=== PATIENT | female | born 1950 | race Caucasian/White ===

== ENCOUNTER 2017-06-26 15:57 | Inpatient (IN) | payer OTHER ==
[~2017-06-26] VITALS: Ht 162.6 cm; Wt 76.8 kg
[~2017-06-26 15:57] MED LIST: ACCUPRIL20 MG PO; AMLODIPINE BESY10 MG PO; ASPIRIN E.C.81 M1 PO; BUMEX1 MG PO; Bumex PO; CLOPIDOGREL75 MG PO; COREG25 M1 PO; COREG6.25 M1 PO; Coreg PO; DELTASONE20 M1 PO; IRON325 MG PO; K-DUR20 MEQ PO; LISINOPRIL20 MG PO; LISINOPRIL5 MG PO; LOMOTIL TABLET1 EACH PO; NOVOLIN,HU100 UNITS/ SC; OXYCODONE HCL5 MG PO; PLAVIX75 MG PO; PREDNISONE10 MG PO; PROAIR HFA8.5 GM IH; SIMVASTATIN80 MG PO; TIMOPTIC-0100 DROP/1 BOTH EYES; TRAMADOL HCL50 MG PO; XALATAN2.5 ML BOTH EYES; Zocor PO
[2017-06-26 16:57] LABS: HEMATOCRIT 27.8 % (36.0-46.0); MCH 31.1 PG (29.0-34.0); MCHC 32.7 G/DL (30.0-36.0); MCV 94.9 FL (83-99); PLATELET COUNT 165 K/uL (156-360); RBC DIS.WIDTH-CV 14.7 % (11.8-14.6); RBC DIS.WIDTH-SD 50.9 % (39-53); RED BLOOD COUNT 2.93 M/uL (3.80-5.20); WHITE BLOOD COUNT 9.1 K/uL (4.1-10.2)
[2017-06-26 17:05] LABS: CHLORIDE 117 mEq/L (99-109); POTASSIUM 5.6 mEq/L (3.7-5.4); SODIUM 142 mEq/L (136-147)
[2017-06-26 17:07] LABS: GLUCOSE 189 mg/dL (70-99)
[2017-06-26 17:08] LABS: ANION GAP 15 MEQ/L (2-14)
[2017-06-26 17:09] LABS: TOTAL BILIRUBIN 0.3 mg/dL (0.0-1.0)
[2017-06-26 17:11] LABS: ALKALINE PHOSPHATASE 78 IU/L (3-129); GFR ESTIMATE (CALCULATED) 10 mL/min/
[2017-06-26 17:16] LABS: TROP-I INTERPRETATION NEGATIVE; TROPONIN-I 0.08 ng/mL (0.0-0.30); UREA NITROGEN (BUN) 172 mg/dL (9-23)
[2017-06-26] MEDS ORDERED: PLAVIX75 MG PO (18:08)
[2017-06-26] MEDS ORDERED: NOVOLIN,HU100 UNITS/ SC (18:10)
[2017-06-26] MEDS ORDERED: METOPROLOL PO (18:11)
[2017-06-26] MEDS ORDERED: ALLOPURINOL300 MG PO (18:12)
[2017-06-26 19:18] LABS: ADD MIUA? YES; BILIRUBIN NEGATIVE; BLOOD SMALL; COLOR YELLOW ((YELLOW)); GLUCOSE (STRIP) NEGATIVE; KETONES NEGATIVE; LEUKOCYTES LARGE; NITRITE NEGATIVE; PROTEIN (STRIP) 30; SPECIFIC GRAVITY 1.012 (1.000-1.030); UROBILINOGEN 0.2 MG/DL (0.2-1.0)
[2017-06-26 19:34] LABS: BACTERIA 4+ /HPF; CASTS NONE SEEN /LPF; CRYSTALS NONE SEEN; EPITHELIAL CELLS NONE SEEN /HPF; MUCUS NONE SEEN /LPF; RED BLOOD CELLS 0-5 /HPF (0-5); UCUL ADDED? YES; WHITE BLOOD CELLS TNTC /HPF (0-5)
[2017-06-26 23:13] LABS: INTACT PARATHYROID HORMONE 164 pg/mL (10-69)
[2017-06-26 23:17] VITALS: BP 108/50
[2017-06-26 23:33] LABS: POINT-OF-CARE METER ID UU13113698
[2017-06-27 03:13] VITALS: BP 110/53
[2017-06-27 05:55] LABS: HEMATOCRIT 25.2 % (36.0-46.0); MCH 31.6 PG (29.0-34.0); MCHC 32.9 G/DL (30.0-36.0); MCV 95.8 FL (83-99); MEAN PLAT.VOLUME 11.3 uM^3 (9.5-12.4); PLATELET COUNT 155 K/uL (156-360); RBC DIS.WIDTH-CV 14.9 % (11.8-14.6); RBC DIS.WIDTH-SD 51.8 % (39-53); RED BLOOD COUNT 2.63 M/uL (3.80-5.20); WHITE BLOOD COUNT 7.9 K/uL (4.1-10.2)
[2017-06-27 06:55] LABS: ANION GAP 14 MEQ/L (2-14); CHLORIDE 117 MEQ/L (99-109); GLUCOSE 163 mg/dL (70-99); SAMPLE HEMOLYSIS CHECK 0; SAMPLE ICTERIC CHECK 0; SAMPLE LIPEMIA CHECK 0; SODIUM 142 MEQ/L (136-147)
[2017-06-27 07:05] LABS: UREA NITROGEN (BUN) 157 mg/dL (9-23)
[2017-06-27 07:06] LABS: GFR ESTIMATE (CALCULATED) 14 mL/min/
[2017-06-27 07:17] VITALS: BP 113/56
[2017-06-27 08:01] LABS: POINT-OF-CARE METER ID UU13113781
[2017-06-27 11:35] VITALS: BP 100/52
[2017-06-27 11:45] LABS: POINT-OF-CARE METER ID UU13113781
[2017-06-27 15:12] VITALS: BP 117/55
[2017-06-27 17:15] LABS: POINT-OF-CARE METER ID UU13113781
[2017-06-27 19:00] VITALS: BP 107/53
[2017-06-27 22:50] VITALS: BP 97/52
[2017-06-28 05:15] VITALS: BP 119/55
[2017-06-28 07:26] LABS: ANION GAP 14 MEQ/L (2-14); CHLORIDE 121 MEQ/L (99-109); IRON 50 MCG/DL (35-150); POTASSIUM 4.3 MEQ/L (3.7-5.4); SAMPLE HEMOLYSIS CHECK 0; SAMPLE ICTERIC CHECK 0; SAMPLE LIPEMIA CHECK 0; SODIUM 147 MEQ/L (136-147)
[2017-06-28 07:36] LABS: GLUCOSE 87 mg/dL (70-99); UREA NITROGEN (BUN) 104 mg/dL (9-23)
[2017-06-28 07:37] LABS: GFR ESTIMATE (CALCULATED) 24 mL/min/
[2017-06-28 08:07] VITALS: BP 116/56
[2017-06-28 08:44] LABS: FERRITIN 478 NG/ML (10-291)
[2017-06-28 11:42] VITALS: BP 106/51
[2017-06-28 12:06] LABS: POINT-OF-CARE METER ID UU13113781
[2017-06-28 12:13] LABS: POINT-OF-CARE METER ID UU13113698
[2017-06-28 13:28] LABS: POINT-OF-CARE METER ID UU13113781
[2017-06-28 16:09] VITALS: BP 100/72
[2017-06-28 19:11] VITALS: BP 90/49
[2017-06-28 23:43] VITALS: BP 112/54
[2017-06-29] MEDS ORDERED: SILVADENE20 GM TP (03:44)
[2017-06-29 04:00] VITALS: BP 105/51
[2017-06-29 07:13] VITALS: BP 107/51
[2017-06-29 07:30] LABS: EOSINOPHIL (%) 1.3 % (0-5); EOSINOPHIL COUNT 0.1 K/uL (0-0.3); HEMATOCRIT 25.1 % (36.0-46.0); IMMATURE GRANULOCYTE (%) 0.6 % (0.0-0.7); IMMATURE GRANULOCYTE COUNT 0.1 K/uL; INSTRUMENT ABS NEUTROPHIL CT 6.9 K/uL; LYMPHOCYTE COUNT 0.7 K/uL (1.0-2.8); MCH 31.3 PG (29.0-34.0); MCHC 32.7 G/DL (30.0-36.0); MCV 95.8 FL (83-99); MEAN PLAT.VOLUME 10.5 uM^3 (9.5-12.4); MONOCYTE (%) 9.8 % (3-12); MONOCYTE COUNT 0.9 K/uL (0-0.8); NEUTROPHIL (%) 79.9 % (45-76); NEUTROPHIL COUNT 6.9 K/uL (1.8-6.4); PLATELET COUNT 151 K/uL (156-360); RBC DIS.WIDTH-CV 14.9 % (11.8-14.6); RBC DIS.WIDTH-SD 51.6 % (39-53); RED BLOOD COUNT 2.62 M/uL (3.80-5.20); WHITE BLOOD COUNT 8.7 K/uL (4.1-10.2)
[2017-06-29 07:53] LABS: POINT-OF-CARE METER ID UU13113781
[2017-06-29 09:10] LABS: ANION GAP 11 MEQ/L (2-14); CHLORIDE 119 MEQ/L (99-109); GFR ESTIMATE (CALCULATED) 28 mL/min/; GLUCOSE 106 mg/dL (70-99); MAGNESIUM 1.5 mg/dl (1.3-2.7); POTASSIUM 4.2 MEQ/L (3.7-5.4); SAMPLE HEMOLYSIS CHECK 0; SAMPLE ICTERIC CHECK 0; SAMPLE LIPEMIA CHECK 0; SODIUM 145 MEQ/L (136-147); UREA NITROGEN (BUN) 79 mg/dL (9-23)
[2017-06-29 12:08] LABS: POINT-OF-CARE METER ID UU13113781
[2017-06-29 12:09] VITALS: BP 110/69
[2017-06-29 16:19] LABS: UR CREATININE CONCENTRATION 91.1 MG/DL
[2017-06-29 16:30] LABS: POINT-OF-CARE METER ID UU13113781
[2017-06-29 16:42] VITALS: BP 99/49
[2017-06-29 18:46] VITALS: BP 109/53
[2017-06-30 00:14] VITALS: BP 102/50
[2017-06-30 03:50] VITALS: BP 112/52
[2017-06-30 06:19] LABS: ANION GAP 11 MEQ/L (2-14); CHLORIDE 114 MEQ/L (99-109); GFR ESTIMATE (CALCULATED) 30 mL/min/; GLUCOSE 63 mg/dL (70-99); POTASSIUM 4.3 MEQ/L (3.7-5.4); SAMPLE HEMOLYSIS CHECK 0; SAMPLE ICTERIC CHECK 0; SAMPLE LIPEMIA CHECK 0; SODIUM 141 MEQ/L (136-147); UREA NITROGEN (BUN) 66 mg/dL (9-23)
[2017-06-30 08:16] VITALS: BP 117/58
[2017-06-30 11:48] LABS: POINT-OF-CARE METER ID UU13113803
[2017-06-30] MEDS ORDERED: BENTYL20 MG PO (12:13)
[2017-06-30] MEDS ORDERED: NABI650T PO (12:13)
[2017-06-30] MEDS ORDERED: CEFDINIR300 MG PO (12:13)
[2017-06-30] MEDS ORDERED: TRAMADOL HCL50 MG PO (12:13)
[2017-06-30] MEDS ORDERED: FLORASTOR250 MG PO (12:13)
[2017-06-30] MEDS ORDERED: ZOFRAN ODT4 MG PO (12:24)
== END 2017-06-30 15:23 | disposition home or self-care (01) | DRG 683 ==
LOC: EME 15:57 → EDOF 20:59 → 4EAST 20:59 → ENRESERV 21:01 → 4EAST 22:42
PROVIDERS: Hospitalist; Internal Medicine Nephrology; Nurse Practitioner Family
DX: N17.0 Acute kidney failure with tubular necrosis (principal); N39.0 Urinary tract infection, site not specified; B96.1 Klebsiella pneumoniae [K. pneumoniae] as the cause of diseases classified elsewhere; E86.0 Dehydration; E87.2 Acidosis; E87.5 Hyperkalemia; I95.9 Hypotension, unspecified; K52.9 Noninfective gastroenteritis and colitis, unspecified; I87.2 Venous insufficiency (chronic) (peripheral); I87.8 Other specified disorders of veins; L97.519 Non-pressure chronic ulcer of other part of right foot with unspecified severity; L97.929 Non-pressure chronic ulcer of unspecified part of left lower leg with unspecified severity; L97.919 Non-pressure chronic ulcer of unspecified part of right lower leg with unspecified severity; I89.0 Lymphedema, not elsewhere classified; I11.0 Hypertensive heart disease with heart failure; I50.9 Heart failure, unspecified; S80.811A Abrasion, right lower leg, initial encounter; X58.XXXA Exposure to other specified factors, initial encounter; R21 Rash and other nonspecific skin eruption; D63.8 Anemia in other chronic diseases classified elsewhere; E79.0 Hyperuricemia without signs of inflammatory arthritis and tophaceous disease; R01.1 Cardiac murmur, unspecified; E11.51 Type 2 diabetes mellitus with diabetic peripheral angiopathy without gangrene; E78.5 Hyperlipidemia, unspecified; I25.10 Atherosclerotic heart disease of native coronary artery without angina pectoris; I25.2 Old myocardial infarction; Z79.4 Long term (current) use of insulin; Z82.49 Family history of ischemic heart disease and other diseases of the circulatory system; Z95.1 Presence of aortocoronary bypass graft
CPT/HCPCS: 71020; 74176; 76770; 80053; 80069; 81003; 82570; 82607; 82728; 82746; 82948; 83540; 83605; 83735; 83930; 83935; 83970; 84156; 84300; 84466; 84484; 84550; 85025; 85027; 85651; 87040; 87077; 87086; 87186; 93005; 99202; 99281; 99285; J0696; J0881; J1815; J1885; J2405; J7030; J7050

== ENCOUNTER 2017-10-26 12:41 | Emergency (ER) | payer OTHER, MEDICARE ==
[~2017-10-26] VITALS: Ht 160 cm; Wt 94.7 kg
[~2017-10-26 12:41] MED LIST changes: +ALLOPURINOL300 MG PO; +AMIODARONE HCL200 MG PO; +BENTYL20 MG PO; +CEFDINIR300 MG PO; +FLORASTOR250 MG PO; +METOPROLOL PO; +MICRO-K10 ME2 PO; +NABI650T PO; +SILVADENE20 GM TP; +ZOFRAN ODT4 MG PO
[2017-10-26] MEDS ORDERED: BUMEX1 MG PO (14:57)
[2017-10-26] MEDS ORDERED: PERCOCET 5/31 TABLET PO (16:33)
[2017-10-26 17:12] VITALS: BP 108/49
== END 2017-10-26 17:26 | disposition home or self-care (01) ==
LOC: EME 12:41
DX: M25.551 Pain in right hip (principal); I50.9 Heart failure, unspecified; E11.9 Type 2 diabetes mellitus without complications; I25.2 Old myocardial infarction; Z79.4 Long term (current) use of insulin; Z95.1 Presence of aortocoronary bypass graft; Z79.82 Long term (current) use of aspirin; Z88.2 Allergy status to sulfonamides; Z91.041 Radiographic dye allergy status; Z88.8 Allergy status to other drugs, medicaments and biological substances
CPT/HCPCS: 73502; 99281; 99284

== ENCOUNTER → 2018-03-11 | Outpatient (CLI) | payer MEDICARE ==
[~2018-03-11] MED LIST changes: -METOPROLOL PO; +METOPROLOL SUCC25 MG PO; +PERCOCET 5/31 TABLET PO
== END | disposition home or self-care (01) ==
LOC: CDC 15:25
DX: Z01.810 Encounter for preprocedural cardiovascular examination (principal); I48.91 Unspecified atrial fibrillation; I45.4 Nonspecific intraventricular block; R94.31 Abnormal electrocardiogram [ECG] [EKG]
CPT/HCPCS: 93000

== ENCOUNTER 2018-06-29 17:30 | Inpatient (IN) | payer OTHER, MEDICARE ==
[~2018-06-29] VITALS: Ht 160 cm; Wt 78.8 kg
[~2018-06-29 17:30] MED LIST changes: +LIPITOR80 MG PO; +SYNTHROID150 MCG PO
[2018-06-29 19:01] LABS: HEMATOCRIT 32.3 % (36.0-46.0); HEMOGLOBIN 10.3 G/DL (11.9-15.5); MCH 29.3 PG (29.0-34.0); MCHC 31.9 G/DL (30.0-36.0); PLATELET COUNT 303 K/uL (156-360); RBC DIS.WIDTH-CV 17.3 % (11.8-14.6); RBC DIS.WIDTH-SD 58.4 % (39-53); RED BLOOD COUNT 3.51 M/uL (3.80-5.20); WHITE BLOOD COUNT 19.8 K/uL (4.1-10.2)
[2018-06-29 19:17] LABS: ALBUMIN 3.3 g/dL (3.2-4.8)
[2018-06-29 19:18] LABS: CHLORIDE 107 mEq/L (99-109); POTASSIUM 5.3 mEq/L (3.7-5.4); SODIUM 133 mEq/L (136-147)
[2018-06-29 19:20] LABS: GLUCOSE 113 mg/dL (70-99); TOTAL PROTEIN 7.1 g/dL (6.4-8.3)
[2018-06-29 19:22] LABS: TOTAL BILIRUBIN 0.4 mg/dL (0.0-1.0)
[2018-06-29 19:23] LABS: ALKALINE PHOSPHATASE 104 IU/L (3-129)
[2018-06-29 19:24] LABS: CREATININE 1.7 mg/dL (0.6-1.3); GFR ESTIMATE (CALCULATED) 32 mL/min/
[2018-06-29 19:25] LABS: AST (GOT) 13 IU/L (2-34); UREA NITROGEN (BUN) 65 mg/dL (9-23)
[2018-06-29 19:27] LABS: ALT (GPT) 11 IU/L (3-49)
[2018-06-29 21:10] LABS: APPEARANCE SL.HAZY ((CLEAR)); BILIRUBIN NEGATIVE; BLOOD SMALL; COLOR YELLOW ((YELLOW)); GLUCOSE (STRIP) NEGATIVE; KETONES NEGATIVE; LEUKOCYTES LARGE; NITRITE POSITIVE; PROTEIN (STRIP) 100; SPECIFIC GRAVITY 1.018 (1.000-1.030); UROBILINOGEN 0.2 MG/DL (0.2-1.0)
[2018-06-29 21:33] LABS: BACTERIA 4+ /HPF; EPITHELIAL CELLS 1+ /HPF; MUCUS NONE SEEN /LPF; RED BLOOD CELLS 0-5 /HPF (0-5); UCUL ADDED? YES; WHITE BLOOD CELLS 15-20 /HPF (0-5)
[2018-06-29] MEDS ORDERED: PERCOCET 5/31 TABLET PO (23:18)
[2018-06-29] MEDS ORDERED: VITAMIN D32000 UNI1 PO (23:20)
[2018-06-29] MEDS ORDERED: NITROSTAT0.4 MG SL (23:20)
[2018-06-29] MEDS ORDERED: PLAVIX75 MG PO (23:21)
[2018-06-29] MEDS ORDERED: NABI650T PO (23:21)
[2018-06-29] MEDS ORDERED: SANTYL30 GM TP (23:21)
[2018-06-30 01:24] VITALS: BP 123/61
[2018-06-30 06:50] VITALS: BP 114/53
[2018-06-30 09:36] LABS: HEMATOCRIT 28.7 % (36.0-46.0); MCH 28.5 PG (29.0-34.0); MCHC 31.4 G/DL (30.0-36.0); MCV 90.8 FL (83-99); PLATELET COUNT 253 K/uL (156-360); RBC DIS.WIDTH-CV 17.4 % (11.8-14.6); RBC DIS.WIDTH-SD 58.4 % (39-53); RED BLOOD COUNT 3.16 M/uL (3.80-5.20); WHITE BLOOD COUNT 12.4 K/uL (4.1-10.2)
[2018-06-30 10:03] LABS: CHLORIDE 106 MEQ/L (99-109); CREATININE 1.3 MG/DL (0.6-1.3); GFR ESTIMATE (CALCULATED) 44 mL/min/; GLUCOSE 127 mg/dL (70-99); POTASSIUM 5.3 MEQ/L (3.7-5.4); SODIUM 133 MEQ/L (136-147); UREA NITROGEN (BUN) 49 mg/dL (9-23)
[2018-06-30 10:54] LABS: CREATINE KINASE 57 IU/L (1-294)
[2018-06-30 11:59] VITALS: BP 115/56
[2018-06-30 16:00] VITALS: BP 114/56
[2018-06-30 22:03] VITALS: BP 127/59
[2018-06-30 23:59] VITALS: BP 115/56
[2018-07-01 06:01] LABS: BASOPHIL (%) 0.2 % (0-1); EOSINOPHIL (%) 1.5 % (0-5); EOSINOPHIL COUNT 0.1 K/uL (0-0.3); HEMATOCRIT 30.4 % (36.0-46.0); HEMOGLOBIN 9.4 G/DL (11.9-15.5); IMMATURE GRANULOCYTE (%) 1.8 % (0.0-0.7); LYMPHOCYTE (%) 8.6 % (15-42); LYMPHOCYTE COUNT 0.7 K/uL (1.0-2.8); MCH 28.6 PG (29.0-34.0); MCHC 30.9 G/DL (30.0-36.0); MCV 92.4 FL (83-99); MONOCYTE (%) 10.4 % (3-12); MONOCYTE COUNT 0.9 K/uL (0-0.8); NEUTROPHIL (%) 77.5 % (45-76); NEUTROPHIL COUNT 6.4 K/uL (1.8-6.4); PLATELET COUNT 259 K/uL (156-360); RBC DIS.WIDTH-CV 17.2 % (11.8-14.6); RBC DIS.WIDTH-SD 58.2 % (39-53); RED BLOOD COUNT 3.29 M/uL (3.80-5.20); WHITE BLOOD COUNT 8.3 K/uL (4.1-10.2)
[2018-07-01 06:17] LABS: ALBUMIN 2.5 G/DL (3.2-4.8); ALKALINE PHOSPHATASE 78 IU/L (3-129); ALT (GPT) 7 IU/L (3-49); AST (GOT) 9 IU/L (2-34); CHLORIDE 108 MEQ/L (99-109); CREATININE 1.4 MG/DL (0.6-1.3); GFR ESTIMATE (CALCULATED) 40 mL/min/; GLUCOSE 105 mg/dL (70-99); POTASSIUM 4.8 MEQ/L (3.7-5.4); SODIUM 136 MEQ/L (136-147); TOTAL BILIRUBIN 0.2 MG/DL (0.0-1.0); TOTAL PROTEIN 5.2 G/DL (6.4-8.3); UREA NITROGEN (BUN) 40 mg/dL (9-23)
[2018-07-01 07:15] VITALS: BP 123/56
[2018-07-01 15:00] VITALS: BP 93/50
[2018-07-01 15:41] LABS: HEMOGLOBIN A1c (GLYCOHEMOGLOB) 5.8 % (Below 5.7)
[2018-07-01 23:04] VITALS: BP 138/62
[2018-07-01 23:35] VITALS: BP 164/86
[2018-07-02 06:07] LABS: BASOPHIL (%) 0.4 % (0-1); EOSINOPHIL (%) 1.4 % (0-5); EOSINOPHIL COUNT 0.1 K/uL (0-0.3); HEMATOCRIT 28.3 % (36.0-46.0); HEMOGLOBIN 8.9 G/DL (11.9-15.5); IMMATURE GRANULOCYTE (%) 2.9 % (0.0-0.7); LYMPHOCYTE (%) 8.7 % (15-42); LYMPHOCYTE COUNT 0.6 K/uL (1.0-2.8); MCH 28.8 PG (29.0-34.0); MCHC 31.4 G/DL (30.0-36.0); MCV 91.6 FL (83-99); MONOCYTE (%) 10.4 % (3-12); MONOCYTE COUNT 0.8 K/uL (0-0.8); NEUTROPHIL (%) 76.2 % (45-76); NEUTROPHIL COUNT 5.6 K/uL (1.8-6.4); PLATELET COUNT 245 K/uL (156-360); RBC DIS.WIDTH-CV 17.3 % (11.8-14.6); RBC DIS.WIDTH-SD 58.3 % (39-53); RED BLOOD COUNT 3.09 M/uL (3.80-5.20); WHITE BLOOD COUNT 7.3 K/uL (4.1-10.2)
[2018-07-02 06:30] LABS: CHLORIDE 110 MEQ/L (99-109); CREATININE 1.2 MG/DL (0.6-1.3); GFR ESTIMATE (CALCULATED) 48 mL/min/; GLUCOSE 130 mg/dL (70-99); POTASSIUM 4.4 MEQ/L (3.7-5.4); SODIUM 140 MEQ/L (136-147); UREA NITROGEN (BUN) 33 mg/dL (9-23)
[2018-07-02 07:20] VITALS: BP 109/52
[2018-07-02 15:35] VITALS: BP 109/57
[2018-07-03 00:27] VITALS: BP 140/59
[2018-07-03 07:05] VITALS: BP 128/61
[2018-07-03 15:45] VITALS: BP 141/60
[2018-07-03 21:00] VITALS: BP 121/58
[2018-07-03 23:11] VITALS: BP 123/57
[2018-07-04 07:25] VITALS: BP 130/58
[2018-07-04] MEDS ORDERED: CEFTRIAXONE2 G1 IV (09:59)
== END 2018-07-04 16:12 | disposition home health service (06) | DRG 302 ==
LOC: EME 17:30 → EDOF 22:27 → 5EAST 22:27
PROVIDERS: Hospitalist
DX: I87.8 Other specified disorders of veins (principal); N17.9 Acute kidney failure, unspecified; N39.0 Urinary tract infection, site not specified; L03.115 Cellulitis of right lower limb; E11.621 Type 2 diabetes mellitus with foot ulcer; L97.519 Non-pressure chronic ulcer of other part of right foot with unspecified severity; L89.310 Pressure ulcer of right buttock, unstageable; E86.0 Dehydration; L89.153 Pressure ulcer of sacral region, stage 3; E87.1 Hypo-osmolality and hyponatremia; L89.320 Pressure ulcer of left buttock, unstageable; B96.1 Klebsiella pneumoniae [K. pneumoniae] as the cause of diseases classified elsewhere; I13.0 Hypertensive heart and chronic kidney disease with heart failure and stage 1 through stage 4 chronic kidney disease, or unspecified chronic kidney disease; I27.20 Pulmonary hypertension, unspecified; L97.528 Non-pressure chronic ulcer of other part of left foot with other specified severity; L97.418 Non-pressure chronic ulcer of right heel and midfoot with other specified severity; N18.4 Chronic kidney disease, stage 4 (severe); E11.51 Type 2 diabetes mellitus with diabetic peripheral angiopathy without gangrene; E11.622 Type 2 diabetes mellitus with other skin ulcer; E11.22 Type 2 diabetes mellitus with diabetic chronic kidney disease; I87.2 Venous insufficiency (chronic) (peripheral); I25.10 Atherosclerotic heart disease of native coronary artery without angina pectoris; E03.9 Hypothyroidism, unspecified; N18.3 Chronic kidney disease, stage 3 (moderate); I50.9 Heart failure, unspecified; K52.9 Noninfective gastroenteritis and colitis, unspecified; Z79.4 Long term (current) use of insulin; Z79.82 Long term (current) use of aspirin; Z79.02 Long term (current) use of antithrombotics/antiplatelets; Z79.899 Other long term (current) drug therapy; Z82.0 Family history of epilepsy and other diseases of the nervous system; Z95.1 Presence of aortocoronary bypass graft; I25.2 Old myocardial infarction; Z82.49 Family history of ischemic heart disease and other diseases of the circulatory system; Z87.440 Personal history of urinary (tract) infections
CPT/HCPCS: 80048; 80053; 81003; 82550; 82948; 83036; 83605; 85025; 85027; 87040; 87070; 87075; 87076; 87077; 87086 GA; 87185; 87186; 87205; 87493; 93970; 94799; 99281; 99285; J0696; J1644; J1815; J3370; J7120